=== PATIENT | male | born 1985 ===

== ENCOUNTER 2017-07-15 15:38 | Inpatient (IN) | payer MEDICAID, OTHER ==
[2017-07-15 16:28] LABS: BASO # 0.1 K/uL (0.0-0.2); BASO % 1.6 % (0.0-2.0); EOS # 0.8 K/uL (0.0-0.7); EOS % 11.2 % (0.0-4.0); LYMPH # 2.7 K/uL (1.0-4.3); LYMPH % 35.9 % (20.0-40.0); MEAN CORPUSCULAR HGB CONC 34.4 g/dL (33.0-37.0); MEAN PLATELET VOLUME 8.5 fL (7.2-11.7); MONO # 0.4 K/uL (0.0-0.8); MONO % 5.2 % (0.0-10.0); NRBC % 0.1 % (0.0-2.0); RED CELL DISTRIBUTION WIDTH 12.9 % (11.5-14.5); WHITE BLOOD COUNT 7.6 K/uL (4.8-10.8)
[2017-07-15 16:40] LABS: CHLORIDE 99 mmol/L (98-107); POTASSIUM 3.2 mmol/L (3.6-5.2); SODIUM 137 mmol/L (132-148)
[2017-07-15 16:42] LABS: GFR AFRICAN-AMERICAN > 60
[2017-07-15 16:43] LABS: ALB/GLOB RATIO 1.3 (1.0-2.1); ALKALINE PHOSPHATASE 88 U/L (38-126); ALT/SGPT 30 U/L (21-72); AST/SGOT 18 U/L (17-59); BLOOD UREA NITROGEN 13 mg/dL (9-20); CALCIUM 8.4 mg/dl (8.6-10.4); CARBON DIOXIDE 27 mmol/L (22-30); GLUCOSE,RANDOM 89 mg/dL (75-110); TOTAL PROTEIN 7.8 g/dL (6.3-8.3)
[2017-07-15 16:44] LABS: ALCOHOL SERUM < 10 mg/dl (0-10)
--- NOTE | 2017-07-15 18:02 | C.PDOC ---
Time Seen by Provider: 07/15/17 15:55 Chief Complaint (Nursing): Psychiatric Evaluation History Per: Patient Onset/Duration Of Symptoms: Days Current Symptoms Are (Timing): Still Present Suicide/Self Injury Attempted (Context): None Modifying Factor(s): None Severity: Moderate Associated Symptoms: Depression Additional History Per: Prior Records Past Medical History Reviewed: Historical Data, Nursing Documentation, Vital Signs Vital Signs: Last Vital Signs Temp 97.9 F 07/15/17 15:48 Pulse 81 07/15/17 15:48 Resp 20 07/15/17 15:48 BP 113/69 07/15/17 15:48 Pulse Ox 99 07/15/17 18:02 - Medical History PMH: Bronchitis Surgical History: No Surg Hx Family History: States: Unknown Family Hx - Social History Hx Alcohol Use: No Hx Substance Use: No - Immunization History Hx Tetanus Toxoid Vaccination: No Hx Influenza Vaccination: No Hx Pneumococcal Vaccination: No Review Of Systems Except As Marked, All Systems Reviewed And Found Negative. Constitutional: Negative for: Fever Cardiovascular: Negative for: Chest Pain Respiratory: Negative for: Shortness of Breath Gastrointestinal: Negative for: Vomiting, Abdominal Pain Genitourinary: Negative for: Dysuria Musculoskeletal: Negative for: Neck Pain Skin: Negative for: Rash Neurological: Negative for: Weakness, Seizures Psych: Positive for: Other (Insomnia) Physical Exam - Physical Exam Appears: Non-toxic, No Acute Distress Skin: Normal Color, Warm, Dry, No Rash Head: Atraumatic, Normacephalic Eye(s): bilateral: Normal Inspection, PERRL, EOMI Neck: Normal ROM, Supple Cardiovascular: Rhythm Regular Respiratory: Normal Breath Sounds, No Accessory Muscle Use Gastrointestinal/Abdominal: Soft, No Tenderness Extremity: Normal ROM Neurological/Psych: Oriented x3, Normal Speech, Normal Cognition, Normal Motor, Normal Sensation ED Course And Treatment - Laboratory Results Result Diagrams: 07/15/17 16:19 07/15/17 16:19 Lab Interpretation: No Acute Changes O2 Sat by Pulse Oximetry: 99 Pulse Ox Interpretation: Normal Progress Note: Pt is medically stable for psychiatric admission. Disposition Counseled Patient/Family Regarding: Studies Performed, Diagnosis - Disposition Disposition: HOSPITALIZED Disposition Time: 19:00 Condition: STABLE - Clinical Impression Clinical Impression: Depression Decision To Admit - Pt Status Changed To: Hospital Disposition Of: Inpatient - Admit Certification Admit to Inpatient:: After my assessment, the patient will require hospitalization for at least two midnights. This is because of the severity of symptoms shown, intensity of services needed, and/or the medical risk in this patient being treated as an outpatient. - InPatient: Physician Admission Certification: I certify that this patient requires 2 or more midnights of care for the following reason:: Psych. - . Bed Request Type: Psychiatry Admitting Physician: Jose G Oates Patient Diagnosis: Depression
[2017-07-15 18:10] LABS: RBC URINE 3 /hpf (0-3); URINE BACTERIA RARE (<OCC); URINE BILIRUBIN NEGATIVE (NEGATIVE); URINE BLOOD NEGATIVE (NEGATIVE); URINE COLOR Yellow (YELLOW); URINE GLUCOSE (UA) NORMAL (Normal); URINE KETONE NEGATIVE (NEGATIVE); URINE LEUKOCYTE ESTERASE NEG Leu/uL (Negative); URINE PROTEIN NEGATIVE (NEGATIVE); WBC URINE 1 /hpf (0-5)
[2017-07-15] MEDS ORDERED: Sodium Chloride 0.9% 1,000 ML ONE (18:27)
[2017-07-15] MEDS ORDERED: Potassium Chloride 20 mEq ER Tab PO STA (19:52)
[2017-07-15] MEDS ORDERED: Potassium Chloride 20 mEq ER Tab PO ONE (19:55)
--- NOTE | 2017-07-15 20:59 | PCM.BM ---
<Ly Spaulding - Last Filed: 07/15/17 20:57> Treatment Plan Problems - Problems identified on initial assessmt Depression Date Initiated: 07/15/17 Time Initiated: 20:20 Assessment reference: NA Status: Active Suicidal Ideation Date Initiated: 07/15/17 Time Initiated: 20:20 Assessment reference: NA Status: Active Treatment assets and liabiliti Patient Assests: adapts well, cooperative, educated, self-reliant, ADL independent, physically healthy, negotiates basic needs, cognitively intact Patient Liabilities: live alone (Lives with mother and 7 yrs old son), medical problems (Bronchitis) - Milieu Protocol Maintain good personal hygiene: daily Encourage regular showers, daily Remind patient to perform daily oral care, other Assist patient to perform ADL's (Self) Conduct patient checks and document Observation sheet: Q15 minutes (For safety) Maintain personal safety: every shift Educate patient to report safety concerns to staff, every shift Monitor environment for contraband/sharps Medication safety: Monitor for expected outcome, potential side effects: every shift, Assess barriers to learning: every shift, Assess readiness for medication education: every shift <Zhane Pham - Last Filed: 07/16/17 11:04> Family Contact Family involvement: Family/SO is involved Family contact: Patient declines to allow family contact at present - Goals for Treatment Patient goals for treatment: "I need help." Discharge/Continuing Care - Education Needs Education Needs: Patient Medication, Patient Coping Skills - Discharge Discharge Criteria: Tolerates medication w/o severe side effects, Free of Suicidal thoughts, Reduction of target symptoms Discharge to:: Home, With Family - Treatment Team Participation Discussed with Family/SO: No Was Patient/Family/SO present at Treatment Team Meeting: Yes <Amilcar Salgado - Last Filed: 07/16/17 11:06> - Diagnosis (1) Depression Status: Acute Interventions: 07/16/17 11:05 * Assess/adjust medications daily and /or as needed * See patient on an individual basis 7x/week to assess level of depressive behaviors and stability * Discuss risks, benefits, side effects and alternatives of medications *
[2017-07-16] MEDS ORDERED: Albuterol HFA 90 mcg/actuation (8 g) INH PRN (02:30)
[2017-07-16] MEDS ORDERED: Multiple Vitamins Tab PO SCH (10:00)
--- NOTE | 2017-07-16 11:04 | PCM.PSYCH ---
Initial Psychiatric Evaluation - Initial Psychiatric Evaluation Type of Admission: Voluntary Legal Status: Capacity Chief Complaint (in patient's own words): "I've been feeling depressed and suicidal for a few days" History of Present Illness and Precipitating Events: This is a 31 year old male, single, 2 children (ages 6-daughter and 7-son), lives with eldest child and the patients mother, and employed at local [employer] presenting with depression and suicidal thoughts. Patient states the thoughts began 1 month ago after from his girlfriend of 7 years (the mother of his daughter). He states the reason behind the separation was they could not agree on anything and denies any particular incident that led to the separation. He states the depressive thoughts have slowly added up until 1 week ago when they overwhelmed him causing him to have constant thoughts of suicide without a plan. 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 He reports depressed mood, at times feelings of worthlessness and helplessness. He reports poor sleep and poor appetite. He denies any AVH, grandiosity or other manic symptoms. Patient states he drinks a couple beers once a month and last drank over the summer. Patient says he smokes marijuana once a month. Patient denies other drug use including cocaine or heroin. Patient denies cigarette use. Past psych history: denies Past medical history: bronchitis-albuterol inhaler Family psych history: denies. Current Medications: Active Medications Generic Name Dose Route Start Last Admin Trade Name Freq PRN Reason Stop Dose Admin Albuterol 2 puff 07/16/17 02:30 07/16/17 02:50 Ventolin Hfa 90 Mcg/Actuation (8 G) INH 2 puff RQ6 PRN Administration Shortness of Breath Pneumococcal Polyvalent Vaccine 0.5 ml 07/17/17 10:00 Pneumovax 23 Vaccine IM 07/17/17 10:01 .ONCE ONE Past Psychiatric History - Past Psychiatric History Previous Treatment History: None Pertinent Medical Hx (Current Medical&Sleep Prob, Allergies): Allergies Allergy/AdvReac Type Severity Reaction Status Date / Time No Known Allergies Allergy Unverified 07/15/17 15:54 Albuterol HFA [Ventolin HFA 90 mcg/actuation (8 g)] 2 puff INH Q6 07/15/17 Review of Systems - Review of Systems All systems: reviewed and no additional remarkable complaints except - Psychiatric Psychiatric: Abnormal Sleep Pattern, Anxiety, Depression, Hopelessness, Suicidal Ideation. absent: Auditory Hallucinations, Hallucinations, Homicidal Ideation, Mood Swings, Panic Attacks, Visual Hallucinations Mental Status Examination - Personal Presentation Personal Presentation: Looks stated age - Affect Affect: Constricted - Motor Activity Motor Activity: Calm - Reliability in Providing Information Reliability in Providing Information: Fair - Speech Speech: Organized - Mood Mood: Depressed, Anxious - Formal Thought Process Formal Thought Process: No Impairment - Cognitive Functions Orientation: Person, Place, Situation, Time Sensorium: Alert Attention/Concentration: Attentive Abstract Thinking: [place] Estimate of Intelligence: Average Judgement: Intact, as evidence by: Insight regarding need for hospitalization Memory: Recent intact, as evidence by: Ability to recall events of the day, Remote intact, as evidenced by: Abilit to recall sig. life events - Risk Risk: Suicidal, Diminished functioning - Strength & Assets Inventory Strength & Assets Inventory: Cooperative DSM 5 DX - DSM 5 DSM 5 Diagnosis: Major depressive disorder, severe, without psychosis - Recommended/Plan of Treatment Treatment Recommendations and Plan of Treatment: Attend groups and activities Individual therapy Psychoeducation and support Encourage compliance with meds and after care Refer to outpatient program Teach healthy lifestyle methods, i.e. diet, exercise, meditation Projected ELOS: 5-7 days Prognosis: Good with treatment - Smoking Cessation Smoking Cessation Initiated: No Reason for not providing: Patient declined smoking
--- NOTE | 2017-07-17 09:42 | PCM.PYCHPN ---
Psychiatric Progress Note - Psychiatric Progress Note Patient Chief Complaint: "I've been feeling depressed and suicidal for a few days" Mental Status Examination - Cognitive Function Orientation: Person, Place, Situation, Time - Mood Mood: Depressed, Anxious - Affect Affect: Constricted - Formal Thought Process Formal Thought Process: No Impairment - Homicidal Ideation Homicidal Ideation: Yes Goal/Treatment Plan - Goal/Treatment Plan Progress Toward Problem(s) and Goals/Treatment Plan: Major depressive disorder, single episode severe, without psychosis Zoloft 50 mg Trazodone 50 mg Hydroxyzine 25 mg PO Q 6 hr prn Attend groups and activities Individual therapy Psychoeducation and support Encourage compliance with meds and after care Refer to outpatient program Teach healthy lifestyle methods, i.e. diet, exercise, meditation
[2017-07-17] MEDS ORDERED: Influenza Vaccine 60 mcg/0.5 mL SYR (4YR UP) IM ONE (10:00)
[2017-07-17] MEDS ORDERED: Pneumococcal 23-Valent Vaccine IM ONE (10:00)
--- NOTE | 2017-07-18 10:53 | PCM.PYCHPN ---
Psychiatric Progress Note - Psychiatric Progress Note Patient seen today, length of contact: 16 Patient Chief Complaint: "I feel okay, trying to stay to myself" Problems Identified/Issues Discussed: The pt is seen, chart reviewed, case discussed with staff. The pt is compliant with medications and reports no side-effects. Symptoms are improving but needs more time to stabilize. After care discussed, support and psychoeducation given. Patient slept well. Patient is keeping to himself more after nursing reports he was seen holding the hand of another patient. Patient states he doesn't get much out of groups because he doesn't have history of drug or alcohol problems. Medication Change: No Medical Record Reviewed: Yes Mental Status Examination - Cognitive Function Orientation: Person, Place, Situation, Time Memory: Intact Attention: WNL Concentration: WNL Association: WNL Fund of Knowledge: WNL - Mood Mood: Depressed, Anxious - Affect Affect: Broad - Formal Thought Process Formal Thought Process: No Impairment - Suicidal Ideation Suicidal Ideation: No - Homicidal Ideation Homicidal Ideation: No Goal/Treatment Plan - Goal/Treatment Plan Need for Continued Stay: Severe depression anxiety, Discharge may exacerbated symptoms Progress Toward Problem(s) and Goals/Treatment Plan: Major depressive disorder, single episode severe, without psychosis Zoloft 50 mg Trazodone 50 mg Hydroxyzine 25 mg PO Q 6 hr prn Continue medications Support and psychoeducation daily Attend groups and activities daily After care planning by ESTEBAN - Smoking Cessation Smoking Cessation Initiated: No
--- NOTE | 2017-07-19 10:39 | PCM.PYCHPN ---
Psychiatric Progress Note - Psychiatric Progress Note Patient seen today, length of contact: 16 min Patient Chief Complaint: "I feel better" Problems Identified/Issues Discussed: Patient seen and evaluated, chart reviewed and discussed with the nurse. Patient reports improvement in his mood and denies any auditory or visual hallucinations. He still reports anxiety but denies any feelings of hopelessness and helplessness. He is taking medication and denies any side effects. He needs more time for stabilization. Supportive therapy and psychoeducation were given. Medication Change: Yes (increase zoloft) Medical Record Reviewed: Yes Mental Status Examination - Cognitive Function Orientation: Person, Place, Situation, Time Memory: Intact Attention: WNL Concentration: WNL Association: WN Fund of Knowledge: WNL - Mood Mood: Depressed, Anxious - Affect Affect: Broad - Speech Speech: Soft - Formal Thought Process Formal Thought Process: No Impairment - Suicidal Ideation Suicidal Ideation: No - Homicidal Ideation Homicidal Ideation: No Goal/Treatment Plan - Goal/Treatment Plan Need for Continued Stay: Severe depression anxiety, Discharge may exacerbated symptoms Progress Toward Problem(s) and Goals/Treatment Plan: Major depressive disorder, single episode severe, without psychosis Zoloft 100 mg Trazodone 50 mg Hydroxyzine 25 mg PO Q 6 hr prn Continue medications Support and psychoeducation daily Attend groups and activities daily After care planning by SW - Smoking Cessation Smoking Cessation Initiated: No
[2017-07-20 09:10] VITALS: BP 108/71; PULSE 63; RESP 16; TEMP 97.7; O2SAT 98
--- NOTE | 2017-07-20 11:47 | PCM.PYCHDC ---
Mental Status Examination - Mental Status Examination Orientation: Person, Place, Situation, Time Memory: Intact Mood: Neutral Affect: Constricted Speech: Soft Attention: WNL Concentration: WNL Association: WNL Fund of Knowledge: WNL Formal Thought Process: No Impairment Description of patient's judgement and insight: good, fair Psychotic Thoughts and Behaviors: denies any AVH Suicidal Ideation: No Current Homicidal Ideation?: No Discharge Summary - Discharge Note Reason for Hospitalization: This is a 31 year old male, single, 2 children (ages 6-daughter and 7-son), lives with eldest child and the patients mother, and employed at [employer] presenting with depression and suicidal thoughts. Patient states the thoughts began 1 month ago after from his girlfriend of 7 years (the mother of his daughter). He states the reason behind the separation was they could not agree on anything and denies any particular incident that led to the separation. He states the depressive thoughts have slowly added up until 1 week ago when they overwhelmed him causing him to have constant thoughts of suicide without a plan. 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 He reports depressed mood, at times feelings of worthlessness and helplessness. He reports poor sleep and poor appetite. He denies any AVH, grandiosity or other manic symptoms. Patient states he drinks a couple beers once a month and last drank over the summer. Patient says he smokes marijuana once a month. Patient denies other drug use including cocaine or heroin. Patient denies cigarette use. Consultations:: List each consultation separately and include: 1. Reason for request. 2. Findings. 3. Follow-up Summary of Hospital Course include:: 1. Description of specific treatment plan utilized for patients during their course of treatmen. 2. Summarize the time- course for resolution of acute symptoms and/or regressed behaviors. 3. Describe issues identified and worked on during hospitalization. 4. Describe medication utilized. 5. Describe medical problems identified and treated. 6. Reassessment of suicide risk Summary of Hospital Course: During the course of his stay, patient (pt) started progressively improving and he no longer remained irritable, depressed, and suicidal. His mood and anxiety were improved and he started attending groups and meetings and started socializing. Patient denied any feelings of hopelessness, helplessness, and worthlessness, denied any problem with the sleep or appetite, denied suicidal ideation or homicidal ideation. Pt denied any auditory or visual hallucinations. Some changes were made in his current medications and patient was discharged on following medications. He tolerated these medications very well and denies any side effects. He was discharged to [facility]. - Diagnosis (1) Depression Status: Acute - Final Diagnosis (DSM 5) Condition upon Discharge: STABLE DSM 5: Major depressive disorder, single episode severe, without psychosis Disposition: HOME/ ROUTINE Follow-up Treatment Plan: Education: Pt was educated and counseled about the risks and benefits of taking and not taking medications. Pt was educated and counseled about the risks of drinking and abusing drugs. Pt was educated and counseled to go to the ER or call 911 if pt develop suicidal ideation or homicidal ideation, worsening of symptoms or severe side effects of the meds. Prescriptions/Medication Reconciliation: Sertraline [Zoloft] 100 mg PO DAILY #30 tab traZODone [Desyrel] 50 mg PO HS #30 tab - Smoking Cessation Smoking Cessation Medication prescribed: No - Antipsychotic Medications Pt discharged on 2 or more routine antipsychotic medications: No
== END 2017-07-20 12:30 | disposition home or self-care (01) | DRG 430 ==
LOC: C.ER 15:38 → C.9E 19:12 → C.5E 19:54
DX: F32.2 Major depressive disorder, single episode, severe without psychotic features (principal); R45.851 Suicidal ideations; F12.90 Cannabis use, unspecified, uncomplicated; J40 Bronchitis, not specified as acute or chronic; F41.9 Anxiety disorder, unspecified